=== PATIENT | male | born 1945 | race Caucasian/White ===

== ENCOUNTER 2016-09-25 07:42 | Observation (INO) | payer MEDICARE, BC ==
[~2016-09-25] VITALS: Ht 180.3 cm; Wt 107.5 kg
--- NOTE | ~2016-09-25 | HP ---
PATIENT'S NAME: JUSTIN NORWOOD [facility] AGE: 71 Y [address] ROOM: [id number] [place], [place] [address] LOCATION: GPCU ADMIT DATE: 09/25/2016 History & Physical DISCHARGE DATE: FAMILY PHYSICIAN: Ilia Anna DO ATTENDING PHYSICIAN: DOREEN BOTELLO DATE OF SERVICE: REASON FOR ADMISSION: Symptomatic sinus bradycardia as well as acute CHF with evidence of volume overload, NYHA Class III symptoms. HISTORY OF PRESENTING ILLNESS: Justin is a very pleasant, 71-year-old gentleman whose primary care is Dr. Ilia Anna. The patient has history of coronary artery disease, status post PCI to the mid LAD in 2000. His last myocardial perfusion scan was in 2009 which was negative for inducible ischemia. He came into [facility] for routine cardiology followup visit and complained of dyspnea on exertion as well as occasional chest tightness. He reports that this is different from his prior episode when he required a stent. When I saw him, he was in new-onset atrial fibrillation, and he also underwent a stress test at that time; however, there was no evidence of significant ischemia. There was evidence mostly of scar tissue in the apex and inferior wall without much reversibility. Since the atrial fibrillation was new, I felt his symptoms were from the atrial fibrillation. I started him on Xarelto 20 mg daily as well as metoprolol 50 mg p.o. b.i.d. for rate control, his heart rate was in the 100 to 110 range, and arranged for a SUSANNE cardioversion here in [facility]. He comes in today to the outpatient department, [facility], for the procedure. The patient reports, since the metoprolol was started, he had significant shortness of breath, dyspnea on exertion, fullness in his abdomen, and some lower extremity edema. He has really not been doing well, the family has been concerned, and this morning, he had difficulty even just walking minimally and had come in on the wheelchair. On exam, he appeared to be regular. So, I hooked him up on the telemetry, and he was sinus dann with heart rate only in the 40s. He also appeared volume overloaded on my exam. He does not have any chest discomfort as such. No loss of consciousness. No palpitations. He does have sleep apnea for which he uses CPAP. The patient does not have any fever, chills, nausea, vomiting, diarrhea, or constipation. He does not have any stroke-like symptoms. He does not have any changes in his vision or swallowing. PATIENT'S NAME: JUSTIN NORWOOD [facility] AGE: 71 Y [address] ROOM: [address] [address] LOCATION: GPCU ADMIT DATE: 09/25/2016 History & Physical DISCHARGE DATE: FAMILY PHYSICIAN: Ilia Anna DO ATTENDING PHYSICIAN: DOREEN BOTELLO REVIEW OF SYSTEMS: All review of systems discussed with the patient. Pertinent positives and negatives mentioned in the History of Presenting Illness. PAST MEDICAL HISTORY: 1. Hypertension. 2. Obstructive sleep apnea, on CPAP. 3. New-onset atrial fibrillation. 4. COPD. 5. Hyperlipidemia. 6. Gastroesophageal reflux disease. 7. History of coronary artery disease, status post PCI of the mid LAD in 2000. PAST SURGICAL HISTORY: None. HOME MEDICATIONS: 1. Flomax 0.4 daily. 2. Amlodipine 10 daily. 3. Lisinopril 20 daily. 4. Famotidine 20 b.i.d. 5. Aspirin 81 daily. 6. Advair Diskus daily. 7. Ventolin inhaler daily. 8. Meloxicam 7.5 mg p.o. 1 to 2 tablets p.r.n. 9. Atorvastatin 40 mg daily. 10. Tylenol p.r.n. ALLERGIES: NO KNOWN DRUG ALLERGIES. FAMILY HISTORY: Positive for premature coronary artery disease in his grandfather on the paternal side. No sudden cardiac . SOCIAL HISTORY: The patient works 3 days a week at [employer]. He quit smoking 20 years ago. No alcohol or illicit drug abuse. PHYSICAL EXAMINATION: VITAL SIGNS: Blood pressure 130/70; pulse in the 40s, normal sinus rhythm; respirations 18; and O2 saturation is 94% on room air. Height is 5 feet 11 inches. SKIN: Warm and dry. PATIENT'S NAME: [facility] AGE: 71 Y [address] ROOM: [address] [place], [place] [address] LOCATION: GPCU ADMIT DATE: 09/25/2016 History & Physical DISCHARGE DATE: FAMILY PHYSICIAN: Wilfrido, Ilia DO ATTENDING PHYSICIAN: DOREEN BOTELLO EYES: Sclerae white. No xanthelasmas. ENT: Mucous membranes moist. No JVD. CHEST: Decreased breath sounds bilaterally in the bases. Poor air exchange. No wheezing or crackles. HEART: S1 and S2, regular rate and rhythm. Bradycardic. No murmurs, gallops, or rubs. ABDOMEN: Obese, soft, and nontender. Appears distended. MUSCULOSKELETAL: Gait is normal. EXTREMITIES: Mild lower extremity edema. PSYCHIATRIC: The patient is alert and oriented, in no apparent distress. Mood and affect are normal. DIAGNOSTIC DATA: Telemetry: Sinus bradycardia. Echocardiogram done in 08/2016 shows normal LV and RV size and systolic function. LVEF is about 55% to 60%. Mild LVH. Mild left atrial enlargement. IVC is dilated at 2.5 with complete inspiratory collapse. Nuclear study: LVEF 60%, mildly abnormal, with mostly fixed defect in the basal to mid inferior apical wall suggestive of infarct without any reversible perfusion defect suggestive of ischemia. Chest x-ray showed evidence of prominence of the central pulmonary vessels with question of vascular congestion. Cardiac silhouette is prominent. No pleural effusions. Abdominal x-ray with nonobstructive bowel gas pattern. LABORATORY DATA: Sodium 142, potassium 3.9, chloride 110, CO2 of 25, anion gap 10.9, glucose 142, BUN 18, and creatinine 0.8. Alkaline phosphatase 76, AST 13, and ALT 29. GFR 89. Cholesterol 85, triglycerides 77, HDL 41, and LDL 29. ProBNP was 419. IMPRESSION AND PLAN: 1. Paroxysmal atrial fibrillation. The patient was noted to be in atrial fibrillation when I saw him earlier this month in [facility], and I started him on Xarelto as well as metoprolol given his increased [id number] score as well as atrial fibrillation with rapid ventricular response. 2. Sinus bradycardia. The patient converted to sinus rhythm spontaneously. Did not require cardioversion today. Given his high [id number] score, I would like to continue the Xarelto for now. 3. Acute diastolic congestive heart failure with volume overload and NYHA Class III symptoms. I will give him Lasix IV 40 mg for now. His BNP is PATIENT'S NAME: [facility]IN [facility] AGE: 71 Y [address] ROOM: [id number] [place], [place] [address] LOCATION: [facility] ADMIT DATE: 09/25/2016 History & Physical DISCHARGE DATE: FAMILY PHYSICIAN: Ilia Anna DO ATTENDING PHYSICIAN: DOREEN BOTELLO elevated, and he is volume overloaded on exam. We will monitor him closely. 4. For now, I will discontinue the metoprolol completely, and I think a lot of his symptoms are from severe sinus bradycardia as well. We will monitor him closely, and we will check for chronotropic competence. I expect his heart rate to improve, and I do not think he will need a pacemaker at this time. 5. Hypertension, well controlled. 6. Hyperlipidemia, well controlled. Continue statin for now. 7. Obstructive sleep apnea. Continue CPAP. 8. Coronary artery disease, status post PCI of the mid LAD without any ischemia on the recent Lexiscan as well as no anginal symptoms as such. If the patient's symptoms improve, we will continue medical therapy for now. Since he is on Xarelto, he will not be on aspirin. There is no strong reason to initiate aspirin at this time given the stable coronary artery disease; however, if he starts developing unstable angina or worsening symptoms and no improvement after treatment of sinus bradycardia, may need to restart aspirin at that time. Continue statin at this time. He is not a good candidate for metoprolol given the bradycardia. 9. I will continue to monitor him closely. Congestive heart failure education will be provided. Low-sodium diet. Fluid restriction, less than 1.5 L. Daily weights. We will likely need to send him on a small dose of Lasix at home to help keep him euvolemic. Thank you very much Dr. Anna for allowing us to participate in the care of Mr. Norwood. DOREEN BOTELLO MD AT/modl /[id number] CC: Ilia Anna DO D: [id number] T: [id number] HISTORY & PHYSICAL
[~2016-09-25 07:42] MED LIST: ADVAIR 250-501 EACH INH; ALLERGY PILL PO; AVODART0.5 MG PO; CPAP INH; FLOMAX0.4 MG PO; LIPITOR40 MG PO; LOPRESSOR50 MG PO; MOBIC7.5 MG PO; NITROSTAT0.4 MG SL; OXYGEN M-15 INH; PEPCID20 MG PO; PRINIVIL (ZESTR20 MG PO; XARELTO20 MG PO
[2016-09-25 09:05] LABS: ALBUMIN 3.5 gm/dL (3.5-5.0); ANION GAP 10.9 (10.0-19.0); CALCIUM 8.3 mg/dL (8.5-10.5); CREATININE 0.8 mg/dL (0.6-1.3); POTASSIUM 3.9 mMol/L (3.7-5.1); TOTAL BILIRUBIN 0.6 mg/dL (0.0-1.5); TOTAL PROTEIN 6.7 g/dL (6.0-8.4)
[2016-09-25] MEDS ORDERED: CLOTRIMAZOLE/BE45 GM TOP (09:58)
[2016-09-26 04:25] LABS: ANION GAP 11.9 (10.0-19.0); CALCIUM 8.7 mg/dL (8.5-10.5); CREATININE 0.9 mg/dL (0.6-1.3); POTASSIUM 3.9 mMol/L (3.7-5.1)
[2016-09-26] MEDS ORDERED: LASIX20 MG PO (09:25)
== END 2016-09-26 12:00 | disposition disaster alternative care site (69) ==
LOC: GSDC 07:42 → GPCU 07:42 → GSDC 07:43 → GOPD 08:00 → EDSTATUS 08:00 → GPCU 20:15
PROVIDERS: ADMIT Internal Medicine Interventional Cardiology
DX: I11.0 Hypertensive heart disease with heart failure (principal); I50.31 Acute diastolic (congestive) heart failure; I48.0 Paroxysmal atrial fibrillation; I25.10 Atherosclerotic heart disease of native coronary artery without angina pectoris; R00.1 Bradycardia, unspecified; E87.70 Fluid overload, unspecified; G47.33 Obstructive sleep apnea (adult) (pediatric); E78.5 Hyperlipidemia, unspecified; J44.9 Chronic obstructive pulmonary disease, unspecified; K21.9 Gastro-esophageal reflux disease without esophagitis; Z79.82 Long term (current) use of aspirin; Z79.899 Other long term (current) drug therapy; Z79.01 Long term (current) use of anticoagulants; Z87.891 Personal history of nicotine dependence
CPT/HCPCS: G0378; J1940; J2001; J7030